=== PATIENT | male | born 1955 | race Caucasian/White ===

== ENCOUNTER 2017-10-02 12:46 | Outpatient (CLI) | payer OTHER ==
[~2017-10-02 12:46] MED LIST: ASPIRIN 81MG TA81 MG PO; FLOMAX 0.4MG C0.4 MG PO; METOPROLOL25 MG PO; NORCO 325 MG-51 TAB PO; PHENERGAN 25MG.25 MG PR
[2017-10-02] MEDS ORDERED: HYDROCHLOROTHIA25 M1 PO (13:07)
[2017-10-02 13:08] VITALS: BP 139/59
[2017-10-02 13:15] LABS: GFR (ESTIMATED) 67 ML/MIN (>60)
[2017-10-02 13:58] VITALS: BP 125/50
[2017-10-02 14:30] VITALS: BP 130/62
[2017-10-02 15:00] VITALS: BP 122/70
[2017-10-02 15:30] VITALS: BP 118/74
[2017-10-02 16:00] VITALS: BP 122/74
== END 2017-10-02 16:00 | disposition home or self-care (01) ==
LOC: COP 12:46
PROVIDERS: Family Medicine
DX: N39.0 Urinary tract infection, site not specified (principal); B95.2 Enterococcus as the cause of diseases classified elsewhere
CPT/HCPCS: J3370